=== PATIENT | male | born 2005 | race Caucasian/White ===

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

== ENCOUNTER 2023-01-22 17:34 | Emergency (ER) | payer MEDICAID ==
[~2023-01-22] VITALS: Ht 172.7 cm; Wt 68.0 kg
[~2023-01-22 17:34] MED LIST changes: +BEN50 PO
[2023-01-22 17:41] VITALS: BP_SYST 125; PULSE 80; RESP 24; TEMP 97.4; O2SAT 99
[2023-01-22] MEDS ORDERED: ONDANSETRON 4 MG ODT TAB PO ONE (18:30)
[2023-01-22] MEDS ORDERED: KETOROLAC TROMETHAMINE 30 MG VIAL IM ONE (18:30)
[2023-01-22] MEDS ORDERED: ONDA-8 TL (21:26)
[2023-01-22] MEDS ORDERED: IBUP-1969 PO (21:26)
[2023-01-22 21:43] VITALS: BP_SYST 125; PULSE 80; RESP 24; TEMP 98.4; O2SAT 99
== END 2023-01-22 21:43 | disposition home or self-care (01) ==
LOC: SED 17:34
DX: S06.0X0A Concussion without loss of consciousness, initial encounter (principal); S30.0XXA Contusion of lower back and pelvis, initial encounter; R11.2 Nausea with vomiting, unspecified; Z79.899 Other long term (current) drug therapy; W10.9XXA Fall (on) (from) unspecified stairs and steps, initial encounter; Y93.89 Activity, other specified; Y92.89 Other specified places as the place of occurrence of the external cause; Y99.8 Other external cause status
CPT/HCPCS: 99285; 70450; 71045; 72100; 76376; 96372; Q0162; J1885

== ENCOUNTER 2023-08-16 06:39 | Emergency (ER) | payer MEDICAID ==
[~2023-08-16] VITALS: Ht 172.7 cm; Wt 70.3 kg
[~2023-08-16 06:39] MED LIST changes: +IBUP-1969 PO; +ONDA-8 TL
[2023-08-16 06:47] VITALS: BP_SYST 109; PULSE 103; RESP 20; TEMP 103; O2SAT 99
[2023-08-16] MEDS: ACETAMINOPHEN 500 MG TABLET PO ONE (07:33)
[2023-08-16 07:36] LABS: BASOPHILS # (AUTO) 0.1 K/uL (0.0-0.2); BASOPHILS % (AUTO) 0.4 % (0.0-2.0); EOSINOPHILS % (AUTO) 0.2 % (0.0-4.0); HEMATOCRIT 42.3 % (36-54); HEMOGLOBIN 14.8 g/dL (14.0-18.0); LYMPHOCYTES # (AUTO) 1.3 K/uL (1.0-5.5); LYMPHOCYTES % (AUTO) 7.6 % (20.5-51.5); MEAN CORPUSCULAR HEMOGLOBIN 32 pg (27-31); MEAN CORPUSCULAR HGB CONC 35 % (32-36); MEAN CORPUSCULAR VOLUME 92 fL (79.0-98.0); MONOCYTES # (AUTO) 1.7 K/uL (0.0-1.0); MONOCYTES % (AUTO) 10.2 % (1.7-9.3); NEUTROPHILS # (AUTO) 13.4 K/uL (1.8-7.7); NEUTROPHILS % (AUTO) 81.6 % (40.0-70.0); PLATELET COUNT (AUTO) 264 K/uL (130-430); RED BLOOD CELL COUNT(AUTO) 4.58 MIL/uL (4.2-6.2); RED CELL DISTRIBUTION WIDTH 12.6 % (9.0-15.0); WHITE BLOOD COUNT (AUTO) 16.4 K/uL (4.5-11.0)
[2023-08-16] MEDS: NS 1000 ML IV.SOLN IV ONE (07:50)
[2023-08-16 08:13] LABS: ALBUMIN 2.7 g/dL (3.4-4.8); BILIRUBIN,DIRECT 0.1 mg/dL (0.0-0.3); CALCIUM 8.4 mg/dL (8.4-11.0); CREATININE 1.01 mg/dL (0.55-1.30); TOTAL BILIRUBIN 0.4 mg/dL (0.0-1.0); TOTAL PROTEIN, SERUM 7.7 g/dL (6.4-8.3)
[2023-08-16] MEDS ORDERED: cefTRIAXone 1 GM VIAL ONE ×2 (08:29→08:30)
[2023-08-16 08:30] LABS: INFLUENZA TYPE A Negative (NEGATIVE); INFLUENZA TYPE B NEGATIVE (NEGATIVE)
[2023-08-16] MEDS: cefTRIAXone 1 GM in D5W 50 ML IV ONE (08:40)
[2023-08-16] MEDS ORDERED: CEFU250T85 PO (08:56)
[2023-08-16 09:33] VITALS: BP_SYST 109; PULSE 90; RESP 18; TEMP 98.9; O2SAT 99
== END 2023-08-16 09:26 | disposition home or self-care (01) ==
LOC: SED 06:39
DX: J20.9 Acute bronchitis, unspecified (principal); Z20.822 Contact with and (suspected) exposure to COVID-19
CPT/HCPCS: 99284; 96365; 71046; 96361; 87426; 80076; 80048; 85025; 87040; 36415; 83605; 87804 ×2; J0696; J7030